=== PATIENT | female | born 1985 | race Caucasian/White ===

== ENCOUNTER 2021-07-05 00:38 | Emergency (ER) | payer SELFPAY ==
[~2021-07-05] VITALS: Ht 170.2 cm; Wt 59.0 kg
[2021-07-05 01:24] VITALS: BP 112/66
== END 2021-07-05 01:41 | disposition left against medical advice (07) ==
LOC: ER 01:05
DX: F10.129 Alcohol abuse with intoxication, unspecified (principal); Y90.9 Presence of alcohol in blood, level not specified; S09.8XXA Other specified injuries of head, initial encounter; R45.1 Restlessness and agitation; Y04.2XXA Assault by strike against or bumped into by another person, initial encounter; Y93.89 Activity, other specified; Y92.89 Other specified places as the place of occurrence of the external cause; Z78.1 Physical restraint status
CPT/HCPCS: 99283